=== PATIENT | male | born 1985 | race Caucasian/White ===

== ENCOUNTER 2019-03-27 22:49 | Emergency (ER) | payer OTHER ==
[~2019-03-27] VITALS: Ht 182.9 cm; Wt 136.0 kg
[2019-03-27 22:50] VITALS: BP 157/84
[2019-03-27 23:56] LABS: INFLUENZA A AMPLIFICATION NEGATIVE (NEGATIVE); INFLUENZA B AMPLIFICATION NEGATIVE (NEGATIVE)
[2019-03-27] MEDS ORDERED: PRED20TA PO (23:59)
[2019-03-27] MEDS ORDERED: KEFL500C17 PO (23:59)
[2019-03-28] MEDS ORDERED: CEPHALEXIN 500 MG CAP PO ONE
[2019-03-28] MEDS ORDERED: predniSONE 20 MG TAB PO ONE
== END 2019-03-28 00:07 | disposition home or self-care (01) ==
LOC: M ED 22:49
DX: J02.9 Acute pharyngitis, unspecified (principal)

== ENCOUNTER 2021-02-02 07:09 | Outpatient (CLI) | payer OTHER ==
[~2021-02-02] VITALS: Ht 182.9 cm; Wt 134.0 kg
[~2021-02-02 07:09] MED LIST: ALBUTEROL 90 MCG/ACT 8GM HFA INHALER INH PRN; ALBUTEROL SULFATE 2.5 MG/0.5 ML INH NEB SOLN INH PRN; EPINEPHrine INJ 1 MG/ML 1ML AMP IM PRN; KEFL500C17 PO; NS 1,000 ML IV SCH; PRED20TA PO; diphenhydrAMINE 50MG/ML VIAL (J1200) IV PRN; methylPREDNISolone 125MG 2ML VIAL IV PRN
[2021-02-02] MEDS ORDERED: CASIRIVIMAB/IMDEVIMAB 1,200 MG in NS 250 ML IV ONE (07:30)
[2021-02-02 08:29] VITALS: BP 128/61
[2021-02-02 08:59] VITALS: BP 110/57
[2021-02-02 09:29] VITALS: BP 119/69
[2021-02-02 10:29] VITALS: BP 129/60
== END 2021-02-02 10:29 | disposition home or self-care (01) ==
LOC: M OPCLI4PR 07:09
PROVIDERS: ATTEND Physician Assistant Medical
DX: U07.1 COVID-19 (principal)

== ENCOUNTER 2024-08-29 20:21 | Emergency (ER) | payer BC, OTHER ==
[~2024-08-29] VITALS: Ht 182.9 cm; Wt 139.1 kg
[~2024-08-29 20:21] MED LIST changes: -ALBUTEROL 90 MCG/ACT 8GM HFA INHALER INH PRN; -ALBUTEROL SULFATE 2.5 MG/0.5 ML INH NEB SOLN INH PRN; -EPINEPHrine INJ 1 MG/ML 1ML AMP IM PRN; -NS 1,000 ML IV SCH; -diphenhydrAMINE 50MG/ML VIAL (J1200) IV PRN; -methylPREDNISolone 125MG 2ML VIAL IV PRN
[2024-08-29] MEDS ORDERED: ERYT5OIN25 (20:30)
[2024-08-30] MEDS ORDERED: CEPH500C PO (00:36)
[2024-08-30] MEDS: CEPHALEXIN 500 MG CAP PO ONE (01:47)
[2024-08-30] MEDS: ERYTHROMYCIN OPHTH OINT OD ONE (01:48)
[2024-08-30 02:01] VITALS: BP 120/81; TEMP 97.1; O2SAT 97
== END 2024-08-30 02:06 | disposition home or self-care (01) ==
LOC: M ED 20:21
DX: H00.031 Abscess of right upper eyelid (principal); F10.10 Alcohol abuse, uncomplicated; Z79.2 Long term (current) use of antibiotics